=== PATIENT | male | born 1980 | race Caucasian/White ===

== ENCOUNTER 2016-09-03 10:21 | Emergency (ER) | payer BC ==
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
== END 2016-09-03 11:23 | disposition home or self-care (01) ==
LOC: LL.ED 10:21
CPT/HCPCS: 99282

== ENCOUNTER 2017-09-03 16:57 | Emergency (ER) | payer OTHER, BC ==
[2017-09-03 17:31] VITALS: BP 139/90
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
== END 2017-09-03 18:54 | disposition home or self-care (01) ==
LOC: LL.ED 16:57
DX: S69.92XA Unspecified injury of left wrist, hand and finger(s), initial encounter (principal); E78.00 Pure hypercholesterolemia, unspecified; Z88.0 Allergy status to penicillin; Z79.82 Long term (current) use of aspirin; Z79.899 Other long term (current) drug therapy; Z98.890 Other specified postprocedural states; F17.210 Nicotine dependence, cigarettes, uncomplicated; W19.XXXA Unspecified fall, initial encounter
CPT/HCPCS: 73110-LT; 99283

== ENCOUNTER 2024-04-04 10:28 | Day surgery (SDC) | payer BC ==
[~2024-04-04 10:28] MED LIST: Propofol 200 MG/20 ML SDV ONE
[2024-04-04] MEDS: Lactated Ringers 1,000 ML IV SCH (10:41)
[2024-04-04] MEDS ORDERED: Sodium Chloride 0.9% 10 ML Syringe FLUSH PRN (10:45)
[2024-04-04] MEDS ORDERED: Propofol 200 MG/20 ML SDV ONE (12:02)
[2024-04-04 12:38] VITALS: BP 102/55; PULSE 86
== END 2024-04-04 12:39 | disposition home or self-care (01) ==
LOC: LL.SDS 10:28
PROVIDERS: ATTEND Surgery
DX: K22.70 Barrett's esophagus without dysplasia (principal); K44.9 Diaphragmatic hernia without obstruction or gangrene; K21.00 Gastro-esophageal reflux disease with esophagitis, without bleeding; J45.20 Mild intermittent asthma, uncomplicated; J84.10 Pulmonary fibrosis, unspecified; F17.210 Nicotine dependence, cigarettes, uncomplicated; Z88.0 Allergy status to penicillin; Z79.899 Other long term (current) drug therapy
CPT/HCPCS: 43239; J2704; J7120

== ENCOUNTER 2024-05-12 20:34 | Emergency (ER) | payer BC ==
[2024-05-12] MEDS ORDERED: Morphine 2 MG/ML SYRINGE ONE (20:41)
[2024-05-12] MEDS: LORazepam 2 MG/ML SDV IVPUSH ONE (20:43)
[2024-05-12] MEDS: methylPREDNISolone Sodium Succinate 125 MG/2 ML SDV IVPUSH ONE (20:43)
[2024-05-12] MEDS ORDERED: Albuterol/Ipratropium 3.0-0.5 MG/3 ML Neb Soln ONE ×2 (20:44→20:59)
[2024-05-12] MEDS: Morphine 2 MG/ML SYRINGE IVPUSH ONE ×3 (20:45→23:34)
[2024-05-12] MEDS ORDERED: Naloxone 0.4 MG/ML SDV IVPUSH PRN (20:45)
[2024-05-12] MEDS: Albuterol/Ipratropium 3.0-0.5 MG/3 ML Neb Soln NEB ONE (21:02)
[2024-05-12] MEDS: Ondansetron 4 MG/2 ML SDV IVPUSH ONE (21:02)
[2024-05-12] MEDS: Sodium Chloride 0.9% 10 ML Syringe FLUSH PRN (21:04)
[2024-05-12 21:25] LABS: HEMATOCRIT 44.3 % (39.0-49.0); HEMOGLOBIN 15.5 g/dL (13.1-16.8); MEAN CORPUSCULAR HEMOGLOBIN 31.6 pg (28.2-33.3); MEAN CORPUSCULAR VOLUME 90.4 fL (84.0-98.0); RED CELL DISTRIBUTION WIDTH 12.5 % (11.2-14.1); WHITE BLOOD CELL COUNT,WBC 19.2 K/uL (4.0-10.2)
[2024-05-12 21:26] LABS: BASOPHILS ABSOLUTE AUTO 0.05 K/uL (0.00-0.20); BASOPHILS PERCENT AUTO 0.3 % (0.0-2.0); EOSINOPHILS ABSOLUTE AUTO 0.11 K/uL (0.00-0.50); EOSINOPHILS PERCENT AUTO 0.6 % (0.0-5.0); LYMPHOCYTES ABSOLUTE AUTO 3.09 K/uL (0.50-3.50); LYMPHOCYTES PERCENT AUTO 16.1 % (10.0-50.0); MONOCYTES ABSOLUTE AUTO 1.22 K/uL (0.00-1.00); MONOCYTES PERCENT AUTO 6.4 % (2.0-14.0); NEUTROPHILS ABSOLUTE AUTO 14.72 K/uL (1.40-7.00); NEUTROPHILS PERCENT AUTO 76.6 % (45.0-80.0); PLATELET COUNT,PLT 182 K/uL (150-350)
[2024-05-12 21:30] LABS: HCO3 VENOUS,POC 18 mmol/L (23-28); O2 SATURATION VENOUS,POC 97 %; PCO2 VENOUS,POC 23 mmHg (41-51); PO2 VENOUS,POC 82 mmHg
[2024-05-12 21:34] LABS: ALANINE AMINOTRANSFERASE,ALT 55 U/L (12-78); ALBUMIN 3.6 g/dL (3.4-5.0); ALKALINE PHOSPHATASE 97 IU/L (46-116); ASPARTATE AMNIOTRANSFERASE,AST 39 U/L (15-37); BLOOD UREA NITROGEN,BUN 6 mg/dL (7-18); CALCIUM 8.6 mg/dL (8.5-10.1); CARBON DIOXIDE,CO2 20.6 mmol/L (21.0-32.0); CHLORIDE,CL 106 mmol/L (98-107); CREATININE 1.39 mg/dL (0.51-1.17); GLUCOSE RANDOM 134 mg/dL (70-99); MAGNESIUM 1.9 mg/dL (1.8-2.4); PROTEIN TOTAL,TP 7.1 g/dL (6.4-8.2); SODIUM,NA 143 mmol/L (136-145)
[2024-05-12 21:39] LABS: LACTIC ACID 5.2 mmol/L (0.4-2.0)
[2024-05-12 21:42] LABS: ANION GAP 19.4 meq/L (7-15); ESTIMATED GFR 65 mL/min (>=60)
[2024-05-12] MEDS ORDERED: Sodium Chloride 0.9% 10 ML Syringe FLUSH PRN (21:44)
[2024-05-12] MEDS: Sodium Chloride 0.9% 1,000 ML IV ONE ×2 (21:53→23:36)
[2024-05-12] MEDS: Potassium Bicarbonate/Cit Ac 20 MEQ Effervescent Tab PO ONE ×2 (22:11→22:18)
[2024-05-12] MEDS: VANCOmycin 1.5 GM/300 ML 1.5 GM in Premix Bag 1 BAG IV ONE (22:11)
[2024-05-12] MEDS: Benzonatate 100 MG Cap PO ONE (22:12)
[2024-05-12] MEDS: guaiFENesin 600 MG Tab.ER PO ONE (22:16)
[2024-05-12] MEDS: Acetaminophen 325 MG Tab PO ONE (22:24)
[2024-05-12 23:18] VITALS: BP 121/63; PULSE 98
[2024-05-12 23:46] LABS: APPEARANCE,URINE SLIGHTLY CLOUDY; BILIRUBIN,URINE NEGATIVE (NEGATIVE); COLOR,URINE DARK YELLOW; GLUCOSE,URINE NEGATIVE (NEGATIVE); KETONES,URINE NEGATIVE (NEGATIVE); LEUKOCYTE ESTERASE,URINE NEGATIVE (NEGATIVE); NITRITE,URINE NEGATIVE (NEGATIVE); OCCULT BLOOD,URINE NEGATIVE (NEGATIVE); PH,URINE 5.5 (5.0-9.0); PROTEIN,URINE NEGATIVE (NEGATIVE)
== END 2024-05-12 23:53 ==
LOC: LL.ED 20:34
DX: U07.1 COVID-19 (principal); R09.02 Hypoxemia; E87.6 Hypokalemia; R74.02 Elevation of levels of lactic acid dehydrogenase [LDH]; F41.9 Anxiety disorder, unspecified; J45.909 Unspecified asthma, uncomplicated; K21.9 Gastro-esophageal reflux disease without esophagitis; E66.9 Obesity, unspecified; Z68.20 Body mass index [BMI] 20.0-20.9, adult; Z79.899 Other long term (current) drug therapy; Z88.0 Allergy status to penicillin
CPT/HCPCS: 36415; 71045; 80053; 81003; 82803; 83605; 83735; 85025; 85379; 87040; 94640; 96365; 96375; 96376; 99284; 99285; A9270; J2060; J2270; J2405; J2919; J3372; J7030; J3490; J7620-GY